=== PATIENT | female | born 1985 | race Caucasian/White ===

== ENCOUNTER 2023-01-15 02:19 | Emergency (ER) | payer OTHER, MEDICARE ==
[~2023-01-15] VITALS: Ht 172.7 cm; Wt 128.4 kg
[2023-01-15 02:42] VITALS: BP 125/81
== END 2023-01-15 04:05 | disposition home or self-care (01) ==
LOC: ER 02:19
DX: S90.01XA Contusion of right ankle, initial encounter (principal); S50.01XA Contusion of right elbow, initial encounter; V86.59XA Driver of other special all-terrain or other off-road motor vehicle injured in nontraffic accident, initial encounter; Z88.8 Allergy status to other drugs, medicaments and biological substances; Z79.84 Long term (current) use of oral hypoglycemic drugs; E11.9 Type 2 diabetes mellitus without complications
CPT/HCPCS: 73080; 73610; 96372; 99283-25; A9270; J1885